=== PATIENT | male | born 1980 | race Caucasian/White ===

== ENCOUNTER 2024-01-01 14:22 | Observation (INO) | payer SELFPAY ==
[~2024-01-01 14:22] MED LIST: Iopamidol-370 76% 500 ML MDV (1 ML CHARGE) ONE
[2024-01-01] MEDS ORDERED: Boostrix 0.5 ML (Tdap) VIAL (>/=7 yrs of age) ONE (14:32)
[2024-01-01 15:11] LABS: #Basophils 0.04 10x3/uL (0.0-0.2); %Basophils 0.4 % (0.0-1.0); %Eosinophils 0.4 % (0.0-10.0); %Lymphocytes 22.7 % (21.0-51.0); %Monocytes 6.8 % (0.0-10.0); %Neutrophils 69.1 % (42.0-75.0); Hemoglobin 15.7 g/dL (14.0-18.0); Mean Corpuscular HGB CONC 34.9 g/dL (32.0-36.0); Mean Corpuscular Hemoglobin 29.2 pg (27.0-31.0); Mean Corpuscular Volume 83.8 fL (78.0-98.0); Mean Platelet Volume 9.8 fL (7.4-10.4); Platelet Count 262 10x3/uL (130-400); RBC Distribution Width 12.9 % (11.5-14.5); Red Blood Cell (RBC) Count 5.37 mill/uL (4.70-6.10)
[2024-01-01 15:32] LABS: Lipase 26 U/L (8-78)
[2024-01-01 15:35] LABS: ALT (SGPT) 46 U/L (8-55); AST (SGOT) 31 U/L (5-34); Acetaminophen Less than 10 mcg/mL (Less than 10); Alcohol Less than 10.0 mg/dL (Less than 10); Alkaline Phosphatase 129 U/L (40-110); Anion Gap 17 mmol/L (10-20); BUN (Urea Nitrogen) 14 mg/dL (8.9-20.6); Bilirubin, Total 0.7 mg/dL (0.2-1.2); Calc. Creatinine Clearance 0 mL/min (70-130); Calcium 9.6 mg/dL (7.8-10.44); Carbon Dioxide 24 mmol/L (22-29); Chloride 103 mmol/L (98-107); Estimated GFR 72; Globulin 3.1 g/dL (2.4-3.5); Glucose 262 mg/dL (70-105); Potassium 3.7 mmol/L (3.5-5.1); Protein, Total 7.1 g/dL (6.0-8.3); Salicylate Less than 8.0 mg/dL (Less than 8.0); Sodium 140 mmol/L (136-145)
[2024-01-01] MEDS ORDERED: Glucagon 1 MG/ML KIT IM PRN (15:47)
[2024-01-01] MEDS ORDERED: Ipratropium/Albuterol 3 ML NEB NEB PRN (15:47)
[2024-01-01] MEDS ORDERED: Ondansetron PF 4 MG/2 ML Vial IVP PRN (15:47)
[2024-01-01] MEDS ORDERED: Dextrose 50% Abboject 50 ML SYRINGE SLOW IVP PRN (15:47)
[2024-01-01] MEDS ORDERED: Dextrose 5% in Water 1,000 ML IV PRN (15:47)
[2024-01-01] MEDS ORDERED: traMADol HCl 50 MG TAB PO PRN (15:49)
[2024-01-01 16:14] LABS: Troponin I Less than 0.010 ng/mL (< 0.028)
[2024-01-01] MEDS ORDERED: fentaNYL 50 mcg/mL 1 mL Vial ONE (16:19)
[2024-01-01] MEDS: Acetaminophen 325 MG TAB PO SCH (18:25)
[2024-01-01] MEDS: traMADol HCl 50 MG TAB PO SCH (18:27)
[2024-01-01] MEDS: Sodium Chloride 0.9% 1,000 ML IV SCH (18:28)
[2024-01-01 20:29] VITALS: BMI 32.3
[2024-01-01] MEDS: Famotidine/PF 20 mg/2ml Vial SLOW IVP SCH (21:19)
[2024-01-01] MEDS: Morphine 2 MG/ML VIAL SLOW IVP PRN (21:19)
[2024-01-01] MEDS: Cyclobenzaprine 10 MG TAB PO PRN (21:20)
[2024-01-01] MEDS: Senokot S 8.6-50 MG TAB PO SCH (21:20)
[2024-01-02 06:38] LABS: #Basophils Less than 0.03 10x3/uL (0.0-0.2); #Eosinphils Less than 0.03 10x3/uL (0.0-0.7); %Basophils 0.1 % (0.0-1.0); %Lymphocytes 10.1 % (21.0-51.0); %Monocytes 7.9 % (0.0-10.0); %Neutrophils 81.6 % (42.0-75.0); Hematocrit 43.7 % (42.0-52.0); Hemoglobin 14.3 g/dL (14.0-18.0); Mean Corpuscular HGB CONC 32.7 g/dL (32.0-36.0); Mean Corpuscular Hemoglobin 29.2 pg (27.0-31.0); Mean Corpuscular Volume 89.2 fL (78.0-98.0); Mean Platelet Volume 9.2 fL (7.4-10.4); Platelet Count 213 10x3/uL (130-400); RBC Distribution Width 13.2 % (11.5-14.5)
[2024-01-02 06:50] LABS: Anion Gap 15 mmol/L (10-20); BUN (Urea Nitrogen) 14 mg/dL (8.9-20.6); Calc. Creatinine Clearance 135 mL/min (70-130); Calcium 8.9 mg/dL (7.8-10.44); Carbon Dioxide 23 mmol/L (22-29); Chloride 103 mmol/L (98-107); Estimated GFR 85; Glucose 331 mg/dL (70-105); Potassium 4.5 mmol/L (3.5-5.1); Sodium 136 mmol/L (136-145)
[2024-01-02] MEDS: Polyethylene Glycol 3350 17 GM Packet PO SCH (08:34)
[2024-01-02] MEDS: HYDROcodone/Acetaminophen 5/325 mg Tablet PO SCH (09:14)
[2024-01-02] MEDS ORDERED: traMADol HCl 50 MG TAB PO PRN (10:04)
[2024-01-02 11:22] VITALS: BP 132/87; TEMP 98.3
[2024-01-02] MEDS: Gabapentin 300 MG CAP PO SCH (12:01)
[2024-01-02] MEDS: Methocarbamol 500 MG TAB PO PRN (12:05)
== END 2024-01-02 15:32 | disposition home or self-care (01) ==
LOC: ERS 14:22 → SURG B 17:05
PROVIDERS: ADMIT Surgery; ATTEND Surgery
DX: S02.19XA Other fracture of base of skull, initial encounter for closed fracture (principal); S06.9X9A Unspecified intracranial injury with loss of consciousness of unspecified duration, initial encounter; Z79.899 Other long term (current) drug therapy; V86.95XA Unspecified occupant of 3- or 4- wheeled all-terrain vehicle (ATV) injured in nontraffic accident, initial encounter
CPT/HCPCS: 36415; 70450; 71260; 72125; 74177; 80048; 80053; 80307; 83690; 84484; 85025; 90471; 90715; 93005; 96374; 96375; 96376; G0378; G0390; J2272; J3010; J3490; J7030; Q9967

== ENCOUNTER 2024-05-09 17:45 | Emergency (ER) | payer SELFPAY ==
[2024-05-09 19:05] LABS: #Basophils 0.04 10x3/uL (0.0-0.2); %Basophils 0.7 % (0.0-1.0); %Eosinophils 1.3 % (0.0-10.0); %Lymphocytes 37.6 % (21.0-51.0); %Monocytes 7.6 % (0.0-10.0); %Neutrophils 52.6 % (42.0-75.0); Hematocrit 43.6 % (42.0-52.0); Hemoglobin 14.5 g/dL (14.0-18.0); Mean Corpuscular HGB CONC 33.3 g/dL (32.0-36.0); Mean Corpuscular Hemoglobin 28.2 pg (27.0-31.0); Mean Corpuscular Volume 84.8 fL (78.0-98.0); Mean Platelet Volume 9.4 fL (7.4-10.4); Platelet Count 226 10x3/uL (130-400); RBC Distribution Width 12.3 % (11.5-14.5); Red Blood Cell (RBC) Count 5.14 mill/uL (4.70-6.10)
[2024-05-09 19:25] LABS: Hemoglobin A1c Greater than 14.0 % (4.0-6.0)
[2024-05-09 19:27] LABS: Phosphorus 3.1 mg/dL (2.5-4.5)
[2024-05-09 19:28] LABS: ALT (SGPT) 22 U/L (Less than 45); AST (SGOT) 15 U/L (11-34); Alkaline Phosphatase 143 U/L (40-110); Anion Gap 12 mmol/L (10-20); BUN (Urea Nitrogen) 16 mg/dL (8.9-20.6); Bilirubin, Total 0.3 mg/dL (0.3-1.2); Calc. Creatinine Clearance 0 mL/min (70-130); Calcium 9.3 mg/dL (7.8-10.44); Carbon Dioxide 26 mmol/L (22-29); Chloride 102 mmol/L (98-107); Estimated GFR 84; Globulin 2.5 g/dL (2.4-3.5); Glucose 368 mg/dL (70-105); Lipase 23 U/L (8-78); Magnesium 1.8 mg/dL (1.6-2.6); Potassium 4.4 mmol/L (3.5-5.1); Protein, Total 6.5 g/dL (6.0-8.3); Sodium 136 mmol/L (136-145)
[2024-05-09 19:29] LABS: Troponin I Less than 0.010 ng/mL (< 0.028)
[2024-05-09 20:00] LABS: Bacteria/HPF None Seen HPF (None Seen); Bilirubin Negative (Negative); Blood, Urine Negative (Negative); CAUTI Indications for Culture Dysuria,urgency,freq; Clarity Clear (Clear); Glucose, Urine (Dipstick) Greater than 1000 mg/dL (Negative); Ketone, Urine Trace mg/dL (Negative); Leukocyte Negative Leu/uL (Negative); Nitrite Negative (Negative); Protein, Urine (Dipstick) Negative (Neg-Trace); RBC/HPF None Seen HPF (0-3); Specific Gravity, Urine 1.039 (1.002-1.036); Squamous Epithelial None Seen HPF (0-3); Urobilinogen Normal mg/dL (Less than 2); WBC/HPF 0-3 HPF (0-3); pH, Urine 5.5 (5.0-9.0)
[2024-05-09 20:03] LABS: Urine Culture Reflex No No
== END 2024-05-09 19:57 | disposition home or self-care (01) ==
LOC: ERS 17:45
DX: E11.65 Type 2 diabetes mellitus with hyperglycemia (principal); F17.290 Nicotine dependence, other tobacco product, uncomplicated
CPT/HCPCS: 36415; 36416; 70450; 80053; 81001; 82010; 83036; 83690; 83735; 84100; 84443; 84484; 85025; 93005